=== PATIENT | male | born 1975 | race African-American/Black ===

== ENCOUNTER 2017-07-22 13:04 | Emergency (ER) | payer MEDICARE ==
[~2017-07-22] VITALS: Ht 188 cm; Wt 140.9 kg
[2017-07-22] MEDS ORDERED: FEBU40TA PO (13:21)
[2017-07-22] MEDS ORDERED: TYLE500T78 PO (13:21)
[2017-07-22] MEDS ORDERED: PRED10TA2 PO (13:21)
[2017-07-22] MEDS ORDERED: COLC1TAB14 PO (13:21)
[2017-07-22] MEDS ORDERED: INDO50CA PO (13:21)
[2017-07-22] MEDS ORDERED: ACETAMINOPHEN 325 MG TAB PO ONE (16:45)
[2017-07-22] MEDS ORDERED: KETOROLAC 30 MG/ML VIAL (J1885) IV ONE (16:45)
[2017-07-22 17:19] LABS: BASO # 0.1 10^3/uL (0.0-0.2); BASO % 0.5 % (0.0-1.0); EOS % 0.2 % (0.0-3.0); IMMATURE GRANULOCYTE % 0.2 % (0-0); LYMPH # 1.8 10^3/uL (1.5-4.5); LYMPH % 13.9 % (24.0-44.0); MEAN CORPUSCULAR HEMOGLOBIN 27.7 pg (27.0-33.0); MEAN CORPUSCULAR HGB CONC 32.2 g/dl (32.0-36.5); MEAN CORPUSCULAR VOLUME 85.9 fl (80.0-96.0); MONO # 1.2 10^3/uL (0.0-0.8); NEUTROPHILS % 76.2 % (36.0-66.0); PLATELET COUNT, AUTOMATED 385 10^3/uL (150-450); RED CELL DISTRIBUTION WIDTH 13.6 % (11.5-14.5); WHITE BLOOD COUNT 13.2 10^3/uL (4.0-10.0)
[2017-07-22 17:29] LABS: ANION GAP 7 MEQ/L (8-16); BLOOD UREA NITROGEN 7 MG/DL (7-18); CALCIUM LEVEL 9.3 MG/DL (8.5-10.1); CARBON DIOXIDE LEVEL 29 MEQ/L (21-32); CHLORIDE LEVEL 103 MEQ/L (98-107); CREATININE FOR GFR 0.96 MG/DL (0.70-1.30); GLOMERULAR FILTRATION RATE > 60.0 (>60); GLUCOSE, FASTING 130 MG/DL (70-105); POTASSIUM SERUM 3.4 MEQ/L (3.5-5.1); SODIUM LEVEL 139 MEQ/L (136-145)
[2017-07-22] MEDS ORDERED: ISOVUE-370 76% 100ML VIAL (Q9967) As Ordered ONE (17:35)
[2017-07-22 17:46] LABS: ERYTHROCYTE SEDIMENTATION RATE 57 mm/hr (0-15)
[2017-07-22] MEDS ORDERED: NS 500 ML IV ONE (18:00)
[2017-07-22] MEDS ORDERED: methylPREDNISolone INJ 125 MG/2 ML VIAL (J2930) IV ONE (18:00)
--- NOTE | 2017-07-22 18:10 | REPUSA ---
HISTORY: Right supraclavicular swelling. TECHNIQUE: Targeted ultrasound over the right supraclavicular region of interest, with color flow Dop pler imaging. FINDINGS: There is a small nodular density in the supraclavicular region measuring 0.7 x 0.5 x 0.6 cm with normal appearance and vascularity of a small benign lymph node. No other pathologic mass or va scular abnormality or abnormal fluid collection is seen. IMPRESSION: Small benign subcentimeter right supraclavicular lymph node; otherwise, negative ultrasou nd examination of right supraclavicular region.
[2017-07-22 18:26] LABS: CONTROL LINE MONO INT CTR LINE PRESENT
--- NOTE | 2017-07-22 18:30 | REPUSA ---
HISTORY: SWELLING RIGHT NECK/CLAVICULAR AREA. Comparison is made to the right supraclavicular ultra sound examination performed today. TECHNIQUE: Axial CT imaging of neck with coronal and chest are reformatted imaging, if intravenous contrast enhancement.DLP= 778.6 mGy-cm. FINDINGS: There is a small benign appearing 0.6 cm supraclavicular lymph node corresponding to the ul trasound findings. There is a 1 cm benign appearing lymph node in the left supraclavicular region. No other pathologically enlarged abnormal lymphadenopathy is seen in the neck. The nasopharyngeal, oropharyngeal, hypopharyngeal airway is normal and larynx and trachea are normal. Salivary glands and thyroid gland are normal. Vascular structures in the neck are normal. No path ologic mass lesions or abnormal fluid collections are seen in the neck. Stable postsurgical changes are noted in the cervical spine extending from C5-C7. No bony fracture or destructive lesion, or spi nal stenosis is seen. IMPRESSION: 1. There is a 0.6 cm right superior clavicular lymph node and a 1.0 cm left supraclavicu lar lymph node, which are most likely postinflammatory and benign. 2. The remainder of the CT examination of the neck is normal.
[2017-07-22] MEDS ORDERED: CLINDAMYCIN 150 MG CAP PO ONE (18:45)
[2017-07-22] MEDS ORDERED: CLEO300C2 PO (19:46)
[2017-07-22] MEDS ORDERED: NORCOTAB PO (19:46)
[2017-07-22] MEDS ORDERED: PRED20TA PO (19:46)
[2017-07-22 20:13] VITALS: BP 160/84
--- NOTE | 2017-07-23 07:53 | REP ---
RIGHT SHOULDER, COMPLETE: 07/22/2017 CLINICAL HISTORY: Shoulder pain. Fever, swelling. COMPARISON: No prior pertinent studies. FINDINGS: The AC joint shows slight narrowing with minimal spur formation inferiorly. There is no elevation of the clavicle in relationship to the acromion to suggest AC joint separation. No clavicular fracture or destructive lesion. The ribs, scapula and humerus are without fracture or focal lesion. Soft tissue calcification or subluxation. No dislocation. IMPRESSION: 1. AC and glenohumeral joints with mild degenerative change and peripheral subchondral cystic change greater tuberosity humeral head that may reflect posterior impingement. No fracture, AC joint separation, other focal bone abnormalities or abnormal soft tissue calcifications. Signed by Larry Pineda MD 07/23/2017 09:10 A
--- NOTE | 2017-07-23 08:24 | REP ---
PA LATERAL CHEST: 07/22/2017. Clinical history: Supraclavicular lymph node swelling. Comparison: CT soft tissue neck today. Findings: Lungs are hypoinflated. There is slight elevation of the right diaphragm compared to the left with more crowding of markings in the right base than left along that elevated diaphragm. Heart size exaggerated by low level of inflation. Likewise the mediastinum is exaggerated by low level of inflation. The aorta is mildly tortuous. There is a plate and three screws at the C5-C7 levels in the lower cervical spine from spinal fusion. No pleural effusion or dense consolidation. The lateral view is also demonstrating hypoinflation. No compression deformity in the spine. No free air under the diaphragm. Impression: 1. Hypoinflated chest with slight elevation right diaphragm compared to left with some compressive atelectasis adjacent to that right diaphragm and no dense consolidation or effusion. There is crowding of markings and exaggeration of heart size and mediastinal contours and with by low level of inflation. No pulmonary edema. 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 Any decision for further imaging should be based on clinical grounds, the chest x-ray, not helpful because of low inflation. Signed by Larry Pineda MD 07/23/2017 09:13 A
--- NOTE | 2017-07-23 09:54 | ED PDOC ---
Post-Departure Follow-Up certified letter sent ot patient regarding radiology report Edel Fuller MD Jul 23, 2017 09:54
== END 2017-07-22 20:16 | disposition home or self-care (01) ==
LOC: M ED 13:04
DX: M75.41 Impingement syndrome of right shoulder (principal); R59.0 Localized enlarged lymph nodes; R50.9 Fever, unspecified; M10.9 Gout, unspecified; Z79.899 Other long term (current) drug therapy; Z79.52 Long term (current) use of systemic steroids
CPT/HCPCS: 36415; 70491; 71020; 73030; 76604; 80048; 85025; 85652; 86140; 86308; 96361; 96374; 96375; 99284; G0463; J1885; J2930; Q9967